=== PATIENT | female | born 1950 ===

== ENCOUNTER 2018-02-14 12:19 | Outpatient (CLI) | payer MEDICARE, MEDICAID ==
--- NOTE | 2018-02-14 15:33 | Fluoroscopy Report ---
MODIFIED BARIUM SWALLOW History: dysphagia. Findings: Video radiography was provided by the radiologist for speech therapy to assess the swallowing mechanism. 1 fluoroscopic image was captured. Impression: Successful modified barium swallow.
== END 2018-02-14 12:20 | disposition home or self-care (01) ==
LOC: PT 12:19
PROVIDERS: ATTEND Specialist
DX: R13.10 Dysphagia, unspecified (principal); R05 Cough
CPT/HCPCS: 74230; 92611; G8996; G8997; G8998